=== PATIENT | female | born 1985 | race Caucasian/White ===

== ENCOUNTER 2020-09-07 20:48 | Emergency (ER) | payer BC, SELFPAY ==
[2020-09-07 20:49] VITALS: BP 123/75; PULSE 92; RESP 15; TEMP 36; O2SAT 100; BMI 23.6
[2020-09-07 21:28] LABS: Bacteria 0 SEEN /hpf (None Seen); Mucous, Urine 0 SEEN /hpf (<or=2+); Red Blood Cells-Urine 0 SEEN /hpf (0-5); White Blood Cells 0 SEEN /hpf (0-5)
[2020-09-07 21:32] LABS: Color, Urine Yellow (Yellow); Glucose, Dipstick Normal (Normal); Ketone-Dipstick Negative (Negative); Leukocyte Esterase-Dipstick Negative /ul (Negative); Nitrite-Dipstick Negative (Negative); Occult Blood-Urine 10 /ul (Negative); Protein-Dipstick Negative (Negative); Urine Bilirubin Dipstick Negative (Negative); Urine Clarity Clear (Clear); Urine Urobilinogen Normal (Normal)
[2020-09-07 21:47] LABS: Internal QC Validated? YES +Cl - CLEAR BKGD; Pregnancy, Urine Negative Negative; Squamous Epithelial Cells - UA 0-5 SEEN /hpf (5-10)
--- NOTE | 2020-09-07 22:15 | ED.DCSUM_ITS ---
- ER Visit Summary Date of Service: 09/07/20 Chief Complaint: Pelvic pain History of Present Illness: The patient is a 34 F with left lower pelvic pain since yesterday. Worse after vaginal intercourse. Patient denies instrumentation or toys. She was having sex with her partner and afterwards reported pain with some spotting. No discharge. She was previously well. She never had this before. No urinary symptoms. No GI symptoms. No fever or systemic symptoms. History of endometriosis and ovarian cysts. She denies any history of sexually transmitted diseases, abscesses. Denies . Last menses was about 2 weeks ago. Physical Examination: Afebrile and vital signs unremarkable. Alert and oriented. No acute distress. Abdomen soft and nontender. External exam is unremarkable. Pelvic exam shows scant discharge at the cervical opening with a scant amount of dried blood in the vaginal vault. There is no evidence of trauma, foreign body, masses. Exam was chaperoned by Julia Hannah RN. Test Results: Urinalysis unremarkable. hCG negative. Trichomonas negative. Gonorrhea and Chlamydia testing are pending. Emergency Department Course and Treatment: Patient declined pain meds. Work-up as above. She is overall low risk for STDs, but will cover her with Rocephin and azithromycin. There is nothing to suggest abscess. Not consistent with torsion. Her pain seems to be under control. She has no other urinary or GI or AGRICULTURAL SALES REPRESENTATIVE complaints. Patient may use [id number] remedies for pain. Refrain from sexual intercourse until following up with her BRILLIANDEER LOOPER. Return for increasing pain, bleeding, or any other new complaints. Treatment Plan: As above Disposition: Discharge Impression: Cervicitis This note was generated with [employer] dictation software. It may contain incorrect words, spelling, and punctuation that were not noted in review of the chart prior to signing ED Disposition - Plan for ED Patient: Referrals: Care Physician,No Primary [Primary Care Provider] -
--- NOTE | 2020-09-07 22:18 | ED.DEP ---
ED Disposition - Plan for ED Patient: Instructions: ED Pelvic Pain, Unknown Cause Referrals: Ciara Dahl MD [STAFF PHYSICIAN] -
[2020-09-07] MEDS: Azithromycin 250 MG Tablet 1000 MG PO (22:31)
[2020-09-07] MEDS: Ceftriaxone 500 MG Vial 250 MG IM (22:32)
[2020-09-07 23:16] LABS: Chlamydia Trachomatis by PCR Negative (Negative); Neisserai gonorrhoeae by PCR Negative (Negative); Probe Check PASS; Sample Adequacy Control PASS; Specimen Processing Control PASS
== END 2020-09-07 22:38 | disposition home or self-care (01) ==
LOC: ED 21:25
PROVIDERS: Emergency Provider Emergency Medicine
DX: N72 Inflammatory disease of cervix uteri (principal)
CPT/HCPCS: 81001; 81025; 87210; 87491; 87591; 96372; 99283

== ENCOUNTER 2025-06-18 22:11 | Emergency (ER) | payer BC, SELFPAY ==
[2025-06-18 22:13] VITALS: BP 123/93; PULSE 80; RESP 18; TEMP 36.9; O2SAT 96; BMI 24.9
[2025-06-19 00:08] LABS: Color, Urine Straw (Yellow); Glucose, Dipstick Normal (Normal); Ketone-Dipstick Negative (Negative); Leukocyte Esterase-Dipstick Negative /ul (Negative); Mucous, Urine 0 SEEN /hpf (<or=2+); Nitrite-Dipstick Negative (Negative); Occult Blood-Urine Negative /ul (Negative); Protein-Dipstick Negative (Negative); Red Blood Cells-Urine 0 SEEN /hpf (0-5); Specific Gravity, Urine 1.005 (1.002-1.030); Squamous Epithelial Cells - UA 0 SEEN /hpf (5-10); Urine Bilirubin Dipstick Negative (Negative)
[2025-06-19 00:12] VITALS: BP 88/45; PULSE 66
[2025-06-19 00:13] LABS: Hematocrit 41.2 % (37-47); Hemoglobin 14.1 g/dL (12.0-15.0); Immature Granulocytes Count 0.050 X10^3/uL (0.0-0.0); Mean Corp Hgb Conc 34.2 g/dL (32-36); Mean Corpuscular Volume 89.0 fL (81-99); Mean Platelet Vol. 8.4 fl (6.2-12.0); NRBC Flagged by Analyzer 0 % (0-5); Platelet Count 329 K/mm3 (150-450); RBC Distribution Width CV 11.9 % (11.6-14.6); RBC Distribution Width SD 38.3 fl (35.1-43.9); Red Blood Count 4.63 M/mm3 (4.2-5.4); White Blood Count 11.2 K/mm3 (4.4-11.0)
[2025-06-19 00:25] VITALS: BP 88/42; PULSE 68; RESP 18; TEMP 36.8; O2SAT 100
[2025-06-19 00:31] VITALS: BP 95/52
[2025-06-19 00:49] LABS: Internal QC Validated? YES +Cl - CLEAR BKGD; Pregnancy, Serum, hCG Quali. NEGATIVE Negative; Record Kit Lot#, Serum Preg. 0000980607
[2025-06-19 00:58] LABS: Anion Gap 12 (5-15); BUN 11 mg/dL (4-19); BUN/Creat Ratio 13.5 RATIO (10-20); Calcium,Total 9.7 mg/dL (7.6-11.0); Carbon Dioxide 25.6 mmol/L (21.0-32.0); Chloride 102 mmol/L (98-108); Estimated Creatinine Clearance 82.30 ml/min (50-250); Glucose 90 mg/dL (70-99); Magnesium 2.2 mg/dL (1.5-2.2); Potassium 3.8 mmol/L (3.3-5.1)
[2025-06-19 01:00] VITALS: BP 95/52; PULSE 74; RESP 16; TEMP 36.6; O2SAT 99
--- NOTE | 2025-06-19 01:07 | ED.VIS.FEGU ---
HPI HPI - Female History of Present Illness Chief Complaint: Vag Bleeding Informant: patient Narrative Narrative: Patient is a 39-year-old female who states she has been worked up as an outpatient regarding recurrent left lower abdominal/pelvic pain without obvious reason for this. She states over the past week she has been having abnormal vaginal bleeding. She denies any history of bleeding disorder or blood thinner use. She states that she has low concern for . She denies any vaginal discharge or concern for STD. She states that overall she feels generally weak and tired and has concerned that she may be anemic. Secondary to this she presents for evaluation [facility] Home Medications ?Medication ?Instructions ?Recorded ?Last Taken ?Type gabapentin 100 mg capsule 100 mg PO BID 06/18/25 Unknown History Allergy/AdvReac Type Severity Reaction Status Date / Time ibuprofen AdvReac Nausea Verified 06/18/25 22:14 Surgical History (Updated 06/18/25 @ 23:45 by Deniz Raines) History of knee surgery Social History Smoking Status: Never smoker ROS ROS ED Constitutional Constitutional ED: Reports other Details: Positive fatigue ; Denies chills or fever(s) ENT ENT ED: Denies sore throat Cardiovascular Cardiovascular: Denies chest pain, palpitations or racing heartbeat Respiratory/Chest Respiratory/Chest: Denies cough or dyspnea Gastrointestinal Gastrointestinal: Reports abdominal pain; Denies diarrhea, nausea or vomiting Genitourinary Genitourinary ED: Denies dysuria or hematuria Musculoskeletal Musculoskeletal: Denies myalgias Integumentary Denies rash Neurologic Neurologic: Reports weakness; Denies headache(s) Hematologic/Lymphatic Hematologic/Lymphatic: Denies easy bleeding or easy bruising EXAM Physical Exam Const Vital Signs: 06/18/25 22:13 06/19/25 00:12 06/19/25 00:25 Temperature 98.4 F 98.2 F Temperature Source Oral Oral Pulse Rate 80 66 68 Respiratory Rate 18 18 Blood Pressure 123/93 H 88/45 L 88/42 L Blood Pressure Mean 103 59 57 Pulse Ox 96 100 Oxygen Delivery Method Room Air Room Air 06/19/25 00:31 Temperature Temperature Source Pulse Rate Respiratory Rate Blood Pressure 95/52 L Blood Pressure Mean 66 Pulse Ox Oxygen Delivery Method Positive well nourished and well developed General Appearance ED: well developed HEENT Reports moist mucous membranes HEENT Narrative: Normocephalic atraumatic No tongue or lip swelling no oral lesions no airway edema or compromise; no secondary findings in the posterior pharynx to suggest infection Eyes PERRL and EOMs intact bilaterally General Eye ED: Negative for pale conjunctiva or scleral icterus Neck supple Neck Narrative: No nuchal rigidity or meningeal signs Resp normal respiratory effort and clear to auscultation bilaterally Cardio regular rate and regular rhythm Rate: other Other Details: Heart is regular rate and rhythm without murmurs rubs or gallops Radial and carotid pulses are equal and symmetric GI non-distended and no masses GI Narrative: Abdomen is soft and nondistended with normal active bowel sounds. There is faint pain present in the left lower quadrant without voluntary guarding or rigidity or pulsatile mass. No peritoneal signs. No increased tympany. Auscultation: normoactive bowel sounds Palpation: soft Narrative: Patient deferred pelvic exam Back/Spine no CVA tenderness Extremity normal to inspection and full ROM Neuro oriented x3, CN's II-XII intact bilaterally and no sensory deficits noted Sensorium / Orientation: alert Motor Exam: strength 5/5 throughout Psych Psych Narrative: Patient has a flat affect Skin no rashes or lesions noted and no wounds Skin Narrative: Capillary refill is less than 3 seconds MDM MDM MDM Narrative Medical decision making narrative: Patient presented to the ER with stable vitals. She reported recurrent left lower quadrant abdominal pain that she states has been worked up as an outpatient with ultrasound and CT scan and even though she is feeling the discomfort today she states it is at its baseline and she does not feel the need for workup regarding this. However because of her abnormal vaginal bleeding and reported excessive fatigue/weakness there is concern for acute blood loss anemia versus acute kidney injury versus UTI versus complication versus thyroid dysfunction. Basic labs were obtained and revealed no clinically significant changes. Therefore at this time as the patient is not anemic or requiring a blood transfusion does not of a complication or signs of systemic infection I do not feel there is need for further intervention and she is otherwise safe for discharge History & Record Review Discussion w/independent historian: Patient Lab Data Attestation: I reviewed the patient's lab results. Labs: Laboratory Results - last 24 hr 06/18/25 06/18/25 23:40 23:54 WBC 11.2 H RBC 4.63 Hgb 14.1 Hct 41.2 MCV 89.0 MCH 30.5 MCHC 34.2 RDW Std Deviation 38.3 RDW Coeff of [place] 11.9 Plt Count 329 MPV 8.4 Immature Gran % (Auto) 0.400 Neut % (Auto) 48.8 Lymph % (Auto) 35.7 [place] % (Auto) 10.2 H Eos % (Auto) 4.1 Baso % (Auto) 0.8 Absolute Neuts (auto) 5.5 Absolute Lymphs (auto) 4.01 Nucleated RBC % 0 Sodium 139 Potassium 3.8 Chloride 102 Carbon Dioxide 25.6 Anion Gap 12 BUN 11 Creatinine 0.84 Estim Creat Clear Calc 82.30 Est GFR (MDRD) Non-Af 90 BUN/Creatinine Ratio 13.5 Glucose 90 Calcium 9.7 Magnesium 2.2 TSH 2.700 Serum , Qual NEGATIVE Urine Color Straw Urine Clarity Clear Urine pH 7.0 Ur Specific [place] 1.005 Urine Protein Negative Urine Glucose (UA) Normal Urine Ketones Negative Urine Occult Blood Negative Urine Nitrite Negative Urine Bilirubin Negative Urine Urobilinogen Normal Ur Leukocyte Esterase Negative Urine RBC 0 SEEN Urine WBC 0 SEEN Ur Squamous Epith Cells 0 SEEN Urine Bacteria 0 SEEN Urine Mucus 0 SEEN Discharge Plan Triage Chief Complaint: Vag Bleeding ED Provider: Alex Norton Dx/Rx/DC Orders Clinical Impression: DUB (dysfunctional uterine bleeding), Generalized weakness Instructions: ED Dysfunctional Uterine Bleeding Prescriptions: No Action gabapentin 100 mg capsule 100 mg PO BID Primary Care Provider: Korina Aguilar NP Referrals: Korina Aguilar NP, [employer] [Primary Care Provider, Family Practice] Activity Restrictions/Additional Instructions: Please follow-up with your family doctor and/or POWER BENDER OPERATOR for further evaluation. Your workup today shows that your blood volume is normal you do not have any signs of kidney damage or electrolyte issues or urinary tract infection. Return to the ER should you have any further concerns Print Language: Sammarinese Disposition Disposition: Home, Self Care Discharge Date/Time: 06/19/25 01:12
== END 2025-06-19 01:12 | disposition home or self-care (01) ==
PROVIDERS: Emergency Provider Emergency Medicine; PCP Internal Medicine; Visit Provider Emergency Medicine
DX: N93.8 Other specified abnormal uterine and vaginal bleeding (principal); R53.1 Weakness; R10.32 Left lower quadrant pain
CPT/HCPCS: 80048; 81001; 83735; 84443; 84703; 85025; 99283; A4216